=== PATIENT | male | born 1970 | race Caucasian/White ===

== ENCOUNTER → 2019-10-13 09:48 | Outpatient (CLI) | payer OTHER, SELFPAY ==
[2019-09-30 11:04] VITALS: BMI 24.0
--- NOTE | 2019-10-13 09:58 | RAD_ITS ---
STUDY: X-RAY CHEST REASON FOR EXAM: Male, 49 years old. BRONCHITIS TECHNIQUE: PA and lateral views of the chest COMPARISON: None. FINDINGS: The lungs are clear and expanded. There is no demonstrated pleural abnormality. Normal size heart. Normal mediastinum and jenny. Normal visualized pulmonary arteries. Normal visualized aortic arch and descending thoracic aorta. Normal visualized thoracic spine. Normal visualized ribs, clavicles, and shoulders. There is no demonstrated abnormality of the visualized soft tissue structures of the upper abdomen. RAD/Chest PA and Lateral IMPRESSION: Normal x-ray examination of the chest. Electronically Signed: Jose Branch, at 13:00 EST Tel , Service support ,
== END ==
PROVIDERS: PCP Family Medicine; Referring Provider Family Medicine; Visit Provider Family Medicine
DX: J20.9 Acute bronchitis, unspecified (principal)
CPT/HCPCS: 71046

== ENCOUNTER 2020-06-03 08:30 | Day surgery (SDC) | payer OTHER, SELFPAY ==
[2020-05-13 13:37] VITALS: BMI 24.0
[2020-06-03] VITALS (7 sets, daily range): BP systolic 88–123; BP diastolic 57–80; PULSE 59–64; RESP 16; TEMP 36.2–36.6; O2SAT 92–100; BMI 27.5
--- NOTE | 2020-06-03 09:00 | HP_ITS ---
Intake Vital Signs 05/13/20 Height 5 ft 7 in 05/13/20 Weight: 176 lb 05/13/20 BMI 27.6 05/13/20 BP 130/89 H 05/13/20 Blood Pressure Location Rt brachial 05/13/20 Position Sitting 05/13/20 Respiration 18 Intake Visit Reasons: Hernia Chief Complaint: RIH/screening c-scope Toolmaker Required: No Is patient in pain?: No Allergies egg Allergy (Mild, Verified 05/13/20 13:36) UPSET STOMACH PFSH Family History Mother Hypertension Other Heart disease Social History (Updated 05/13/20 @ 15:[address] Jose Nuno MD) Smoking Status: Never smoker alcohol intake: never HPI HPI HPI: ALESSANDRO SANCHES, is a 50 M who presents to the office today for HPI HPI Surgical H&P: Yes HPI: ALESSANDRO SANCHES, is a 50 M who presents to the office today for screening colonoscopy and right inguinal hernia. The patient has noticed bulging in his right groin for the last 6 to 8 weeks. He also notes that it goes away when he lays down. It happens more when he is sneezing or coughing. Patient notes no issues on his other side. Patient has never had a screening colonoscopy. He denies any family history of colon cancer or abdominal pain or blood in his stool. ROS General General: No weight change or fatigue Cardio Cardiovascular: No murmur, pacemaker, heart disease, atrial fibrillation, high blood pressure, heart attack, heart stent, palpitations, shortness of breat with exertion or chest pain Psych Psychiatric: No depression or anxiety Resp Respiratory: No shortness of breath, No sleep apnea, No cough, No COPD, No asthma, No emphysema, No wheezing Gastro Gastrointestinal: No abdominal pain, No nausea or vomiting, No diarrhea, No constipation, No blood in stool, No acid reflux, No hemorrhoids, No ulcers, No gallbladder problem, No black,tarry stools Je Hematologic: No blood thinners Exam Const General: cooperative Orientation: alert, oriented x3 Resp Effort & Inspection: normal respiratory effort Auscultation: clear to auscultation bilaterally Cardio Rate: regular rate Rhythm: regular rhythm Heart Sounds: no murmurs GI Inspection: non-distended Palpation: soft, hernia indirect inguinal on the right, nontender Assessment & Plan Problems 1. Right inguinal hernia K40.90 2. Screen for colon cancer Z12.11 Plan Patient has a right inguinal hernia which is reducible and soft. He would like this repaired. I discussed open versus laparoscopic approach. The patient decided on laparoscopic approach. I discussed robotic assisted laparoscopic right inguinal hernia repair with mesh, possible bilateral. The patient would like the contralateral side repaired if there is a hernia present. I discussed the procedure in detail as well as the risks. The patient is going to follow-up with me in the wintertime to schedule his hernia repair for the new year. Patient also needs a screening colonoscopy as he has never had one. I will get him scheduled for screening colonoscopy. I explained endoscopy in detail to the patient. I explained the risks including but not limited to stroke or heart attack with anesthesia, perforation of the GI tract, bleeding, infection. I explained that any of these could necessitate further emergency surgery. The patient understands and all questions were answered sufficiently. The patient wishes to proceed with procedure. We discussed the current risks associated with COVID-19. While it is understood that there is a community spread of COVID-19, the risk of [place] COVID-19 while at [facility] ([facility]) is very low; however, the risk cannot be completely mitigated because of the community spread of the disease. We discussed in detail the risk of exposure to and/or potential harm posed by the COVID-19 virus with having a surgery/procedure at this time versus the risk of delaying the surgery/procedure. It is not possible to know either the risk of delaying the surgery or procedure or chance of getting an infection with perfect accuracy, but a joint decision was made to proceed at this time with the scheduled surgery/procedure as indicated on the consent form. Patient was notified that we will need to comply with any screening or testing [facility] wishes to perform or that surgery may be delayed for any positive results. Jose Nuno MD Pager: [facility] [address] [place] [address], [address] [place] [address] Office: Orders Orders: Colonoscopy Today Z12.11 Coding Level of Care Code Off vis,new,level 3 Diagnoses Right inguinal hernia K40.90 Screen for colon cancer Z12.11 I have re-examined the patient. There are no clinical changes since date of exam.
[2020-06-03] MEDS: Lactated Ringers 1,000 ML 100 ML IV (09:02)
--- NOTE | 2020-06-03 09:28 | OP.COLON_ITS ---
Patient Name: Dung Ngo Procedure Date: 06/03/2020 9:06 AM Date of : 1970 Age: 50 Procedure: Colonoscopy Indications: Screening for colorectal malignant neoplasm Providers: Jose Nuno MD Referring MD: Santiago Magdaleno Medicines: Monitored Anesthesia Care Patient Profile: This is a 50 year old male. Refer to note in patient chart for documentation of history and physical. Last Colonoscopy: none. The patient's first colonoscopy is today. Complications: No immediate complications. Procedure: Pre-Anesthesia Assessment: - Prior to the procedure, a History and Physical was performed, and patient medications and allergies were reviewed. The patient's tolerance of previous anesthesia was also reviewed. The risks and benefits of the procedure and the sedation options and risks were discussed with the patient. All questions were answered, and informed consent was obtained. Prior Anticoagulants: The patient has taken no previous anticoagulant or antiplatelet agents. After reviewing the risks and benefits, the patient was deemed in satisfactory condition to undergo the procedure. After I obtained informed consent, the scope was passed under direct vision. Throughout the procedure, the patient's blood pressure, pulse, and oxygen saturations were monitored continuously. The Colonoscope was introduced through the anus and advanced to the cecum, identified by appendiceal orifice and ileocecal valve. The colonoscopy was performed without difficulty. The patient tolerated the procedure well. The quality of the bowel preparation was good. Scope In: 9:15:14 AM Scope Withdrawal Time 0 hours 6 minutes 2 seconds Scope Out: 9:25:30 AM Total Procedure Duration Time 0 hours 10 minutes 16 seconds Findings: The entire examined colon appeared normal on direct and retroflexion views. Impression: - The entire examined colon is normal on direct and retroflexion views. - No specimens collected. Recommendation: - Discharge patient to home. - Resume previous diet. - Continue present medications. - Repeat colonoscopy in 10 years for screening purposes. Procedure Code(s): --- Professional --- 23799, Colonoscopy, flexible; diagnostic, including collection of specimen(s) by brushing or washing, when performed (separate procedure) Diagnosis Code(s): --- Professional --- Z12.11, Encounter for screening for malignant neoplasm of colon CPT copyright 2017 [employer]. All rights reserved. The codes documented in this report are preliminary and upon metal patternmaker review may be revised to meet current compliance requirements. Jose Nuno MD 06/03/2020 9:28:20 AM This report has been signed electronically. Number of Addenda: 0 Note Initiated On: 06/03/2020 9:06 AM
--- NOTE | 2020-06-03 09:29 | OP.CCLET_ITS ---
06/03/2020 Santiago Magdaleno [address] [place] [address] Re : Colonoscopy procedure for Dung Ngo Dear Dr. Magdaleno This procedure was performed on Wednesday, June 03, 2020. My impressions and recommendations are as follows: Impressions : - The entire examined colon is normal on direct and retroflexion views. - No specimens collected. Recommendations : - Discharge patient to home. - Resume previous diet. - Continue present medications. - Repeat colonoscopy in 10 years for screening purposes. My findings are described in the full procedure note, which is enclosed. If I can be of further assistance, please feel free to contact me at Doctor phone number(s): , Work: . Sincerely, Jose Nuno MD 06/03/2020 9:28:20 AM This report has been signed electronically.
== END 2020-06-03 10:31 | disposition home or self-care (01) ==
LOC: EN 08:37 → AC 08:38
PROVIDERS: Anesthesiology; PCP Family Medicine; Visit Provider Surgery
PROC: 0DJD8ZZ Inspection of Lower Intestinal Tract, Via Natural or Artificial Opening Endoscopic (ICD-10-PCS; CPT 45378; principal; 2020-06-03 09:25)
DX: Z12.11 Encounter for screening for malignant neoplasm of colon (principal); Z20.828 Contact with and (suspected) exposure to other viral communicable diseases; K40.90 Unilateral inguinal hernia, without obstruction or gangrene, not specified as recurrent
CPT/HCPCS: 45378; 87635; C9803; J7120; J2405; U0003

== ENCOUNTER 2020-09-04 06:05 | Day surgery (SDC) | payer OTHER, SELFPAY ==
[2020-06-03 08:58] VITALS: BMI 27.5
--- NOTE | 2020-08-29 09:15 | EKG12_ITS ---
Test Reason : PREOP Blood Pressure : / mmHG Vent. Rate : 054 BPM Atrial Rate : 054 BPM P-R Int : 158 ms QRS Dur : 080 ms QT Int : 392 ms P-R-T Axes : 064 012 047 degrees QTc Int : 371 ms Sinus bradycardia Otherwise normal ECG Confirmed by CAROL GORDON, JANET ([id number]), film or videotape editor MALIK RILEY ([id number]) on 09/01/2020 12:54:10 PM Referred By: Jose Nuno Confirmed By:JANET MEDINA MD
[2020-09-04] VITALS (9 sets, daily range): BP systolic 99–120; BP diastolic 57–82; PULSE 46–70; RESP 14–18; TEMP 36.2–36.6; O2SAT 98–100; BMI 26.1
--- NOTE | 2020-09-04 06:00 | HP_ITS ---
Intake Vital Signs 05/13/20 Height 5 ft 7 in 05/13/20 Weight: 176 lb 05/13/20 BMI 27.6 05/13/20 BP 130/89 H 05/13/20 Blood Pressure Location Rt brachial 05/13/20 Position Sitting 05/13/20 Respiration 18 Intake Visit Reasons: Hernia Chief Complaint: RIH/screening c-scope Blower Room Attendant Required: No Is patient in pain?: No Allergies egg Allergy (Mild, Verified 05/13/20 13:36) UPSET STOMACH PFSH Family History Mother Hypertension Other Heart disease Social History (Updated 05/13/20 @ 15:[address] Jose Nuno MD) Smoking Status: Never smoker alcohol intake: never HPI HPI HPI: ALESSANDRO SANCHES, is a 50 M who presents to the office today for HPI HPI Surgical H&P: Yes HPI: ALESSANDRO SANCHES, is a 50 M who presents to the office today for screening colonoscopy and right inguinal hernia. The patient has noticed bulging in his right groin for the last 6 to 8 weeks. He also notes that it goes away when he lays down. It happens more when he is sneezing or coughing. Patient notes no issues on his other side. Patient has never had a screening colonoscopy. He denies any family history of colon cancer or abdominal pain or blood in his stool. ROS General General: No weight change or fatigue Cardio Cardiovascular: No murmur, pacemaker, heart disease, atrial fibrillation, high blood pressure, heart attack, heart stent, palpitations, shortness of breat with exertion or chest pain Psych Psychiatric: No depression or anxiety Resp Respiratory: No shortness of breath, No sleep apnea, No cough, No COPD, No asthma, No emphysema, No wheezing Gastro Gastrointestinal: No abdominal pain, No nausea or vomiting, No diarrhea, No constipation, No blood in stool, No acid reflux, No hemorrhoids, No ulcers, No gallbladder problem, No black,tarry stools Je Hematologic: No blood thinners Exam Const General: cooperative Orientation: alert, oriented x3 Resp Effort & Inspection: normal respiratory effort Auscultation: clear to auscultation bilaterally Cardio Rate: regular rate Rhythm: regular rhythm Heart Sounds: no murmurs GI Inspection: non-distended Palpation: soft, hernia indirect inguinal on the right, nontender Assessment & Plan Problems 1. Right inguinal hernia K40.90 2. Screen for colon cancer Z12.11 Plan Patient has a right inguinal hernia which is reducible and soft. He would like this repaired. I discussed open versus laparoscopic approach. The patient decided on laparoscopic approach. I discussed robotic assisted laparoscopic right inguinal hernia repair with mesh, possible bilateral. The patient would like the contralateral side repaired if there is a hernia present. I discussed the procedure in detail as well as the risks. The patient is going to follow-up with me in the wintertime to schedule his hernia repair for the new year. Patient also needs a screening colonoscopy as he has never had one. I will get him scheduled for screening colonoscopy. I explained endoscopy in detail to the patient. I explained the risks including but not limited to stroke or heart attack with anesthesia, perforation of the GI tract, bleeding, infection. I explained that any of these could necessitate further emergency surgery. The patient understands and all questions were answered sufficiently. The patient wishes to proceed with procedure. We discussed the current risks associated with COVID-19. While it is understood that there is a community spread of COVID-19, the risk of [place] COVID-19 while at [facility] ([facility]) is very low; however, the risk cannot be completely mitigated because of the community spread of the disease. We discussed in detail the risk of exposure to and/or potential harm posed by the COVID-19 virus with having a surgery/procedure at this time versus the risk of delaying the surgery/procedure. It is not possible to know either the risk of delaying the surgery or procedure or chance of getting an infection with perfect accuracy, but a joint decision was made to proceed at this time with the scheduled surgery/procedure as indicated on the consent form. Patient was notified that we will need to comply with any screening or testing [facility] wishes to perform or that surgery may be delayed for any positive results. Jose Nuno MD Pager: [facility] [address] [place] [address], [address] [place] [address] Office: Orders Orders: Colonoscopy Today Z12.11 Coding Level of Care Code Off vis,new,level 3 Diagnoses Right inguinal hernia K40.90 Screen for colon cancer Z12.11 I have re-examined the patient. There are no clinical changes since date of exam.
[2020-09-04] MEDS: Lactated Ringers 1,000 ML 100 ML IV ×2 (06:51→09:10)
[2020-09-04] MEDS: Cefazolin 2 GM in 0.9% Normal Saline 100 ML IV (07:24)
[2020-09-04] MEDS: Bupivacaine Mpf 0.5% 30 ML VIAL INFILT (08:15)
--- NOTE | 2020-09-04 09:11 | PCM.OPRPT ---
Problem List (1) Right inguinal hernia Status: Acute Report of Operation Date of Procedure: 09/04/20 Pre-Operative Diagnosis: Right inguinal hernia Post-Operative Diagnosis: Same Surgery/Procedure Performed:: Robotic assisted laparoscopic right inguinal hernia repair with mesh Specimen's removed: None Description of Procedure: Patient was brought back to the operating room and general anesthesia was used. The abdomen was prepped and draped in usual sterile fashion. An incision was made superior to the umbilicus and the fascia was grasped and elevated and a varies needle was placed into the abdomen and a drop test was performed was normal. The abdomen was insufflated to 15 mmHg. The Veress needle was removed and the camera port was placed into the abdomen. The camera placed into the abdomen was inspected for injuries and there were none. Next the inguinal regions were inspected and the patient appeared to only have a right inguinal hernia. Under direct visualization a right lower quadrant and left lower quadrant 8 mm port were placed. Next the patient was placed in Trendelenburg and the robot was docked. Using electrocautery scissors an incision was made in the peritoneum in the right groin and it was deep into the hernia. The hernia sac was reduced into the abdomen. The progrip mesh was unfolded over the inguinal hernia and I completely cover the defect with good overlap. The peritoneum was reapproximated using 3-0V lock suture. There was a defect in the peritoneum which was closed with a separate V-Loc suture in a running fashion incorporating the hernia sac. At the end of the case the peritoneum completely cover the mesh in the right groin. Next the instruments were removed and the robot was undocked. The abdomen was allowed to desufflate and the incisions were closed with interrupted 4-0 Monocryl sutures as well as Steri-Strips and bandages. Scrotum was checked at the end the case and contain both testicles. The patient was awoken and taken to PACU in stable condition tolerated the procedure well. Grafts/Implants Used: Progrip mesh - Admit VTE Documentation VTE Mechan Device Prophylaxis: SCD's
--- NOTE | 2020-09-04 09:16 | DCINST_ITS ---
Discharge Diet: Light diet - advance as tolerated Discharge Activity: Return to Normal Activity, May Not Drive - for 2-3 days or while taking narcotic pain meds., May Shower - with the bandage in place 1-2 days after surgery. Lifting Restrictions: 20 pounds for 4 weeks. Additional Activity Instructions:: Climbing stairs is fine, walking is encouraged. Sitting in bed may be uncomfortable. Sitting up using your lateral muscles (sitting up sideways) is usually more comfortable. Do not drive, work heavy equipment of sign legal documents for 24 hours. If your hernia repair was an ingunial repair, you may have scrotal swelling, an ice pack and/or athletic support can provide more comfort. Pain medications may cause nausea, you should typically eat light foods as you take your pain medications. Pain medications may also cause constipation. If you have difficulty with this, discuss with your doctor. Call your doctor if your incision/area has: Continuous Slow Oozing, Sudden Increased Bleeding, Increased Pain/ Swelling, Increased Redness, Foul Smelling Discharge Call your doctor if you observe: Fever of 101 or Higher Suture Line Care: Avoid Pulling/Pushing, Avoid Pinching/Bending Change Dressing in (Days):: 3 - Leave steri-strips for 1 week. May protect with a guaze bandaid. Cleanse incision/area with: Keep Dressing Clean & Dry Allergies/Adverse Reactions: Allergies egg Allergy (Mild, Verified 09/04/20 06:37) UPSET STOMACH Medications to take at Discharge Oxycodone HCl/Acetaminophen [Percocet 5-325 mg Tablet] 1 tab PO Q4H PRN PRN 7 Days #10 tablet 09/04/20 The following prescriptions were given: Oxycodone HCl/Acetaminophen [Percocet 5-325 mg Tablet] 1 tab PO Q4H PRN PRN 7 Days #10 tablet PRN Reason: Pain Score 4-10/10 Transmission Status: Sent to [facility] Primary Care Physician: Santiago Magdaleno MD [Primary Care Provider] - Test Results: Test results from this visit will be discussed in further detail at your follow- up appointment, if applicable. Please Follow Up With: Jose Nuno MD When: Please call to schedule 2 week follow up appointment. [phone]
[2020-09-04] MEDS: oxyCODONE 5 MG Tablet PO (11:35)
[2020-09-04] MEDS: Acetaminophen 325 MG Tablet PO (11:35)
== END 2020-09-04 12:30 | disposition home or self-care (01) ==
LOC: SDC 06:06 → AC 06:06
PROVIDERS: PCP Family Medicine; Referring Provider Surgery; Visit Provider Surgery
PROC: (CPT 49650; principal; 2020-09-04 07:10)
DX: K40.90 Unilateral inguinal hernia, without obstruction or gangrene, not specified as recurrent (principal); Z20.822 Contact with and (suspected) exposure to COVID-19
CPT/HCPCS: 00840; 49650; S2900; 87426; 93005; C9803; J7120; J2405

== ENCOUNTER 2021-11-09 16:41 | Outpatient (CLI) | payer OTHER, SELFPAY ==
--- NOTE | 2021-11-09 16:47 | CT_ITS ---
STUDY: CT ABDOMEN AND PELVIS WITHOUT CONTRAST REASON FOR EXAM: Male, 51 years old. Right groin pain RADIATION DOSAGE (If Supplied By Facility): CTDIvol = ( 7.64 ) mGy, DLP = ( 366.66 ) mGycm TECHNIQUE: Transaxial images were obtained from the dome of the diaphragm to the symphysis pubis without oral contrast, and without intravenous contrast. Sagittal and coronal images were reconstructed. Individualized dose optimization techniques were used for this CT. COMPARISON: None. FINDINGS: The visualized lung bases are unremarkable. The visualized portions of the heart are within normal limits. There are a few scattered hypoattenuating hepatic lesions, too small to characterize. Normal gallbladder and extrahepatic biliary system. Normal spleen. Normal pancreas. Normal bilateral adrenal glands. No hydroureteronephrosis. Punctate nonobstructive right nephrolithiasis.. Normal left kidney. Normal visualized stomach. Normal small intestine. Mild increased stool in the proximal colon.. Appendix not visualized. Normal abdominal aorta. Normal inferior vena cava. Normal retroperitoneum. Mild urinary bladder wall thickening.. Increased fat in the bilateral inguinal canals without discrete herniation. Normal abdominal wall. Normal osseous structures. CT/Abdomen/Pelvis without Cont IMPRESSION: 1. Mild urinary bladder wall thickening, may be due to decompression or cystitis. 2. Punctate nonobstructive right nephrolithiasis. 3. No hydroureteronephrosis. 4. Increased fat in the bilateral inguinal canals without discrete herniation. 5. Mild increased stool in the proximal colon. Electronically Signed: Yuriy Jack MD at 5:20 EDT ,
== END 2021-11-09 23:59 | disposition home or self-care (01) ==
LOC: CT 16:42
PROVIDERS: PCP Family Medicine; Visit Provider Surgery
DX: R10.2 Pelvic and perineal pain (principal); Z98.890 Other specified postprocedural states; Z87.19 Personal history of other diseases of the digestive system
CPT/HCPCS: 74176